=== PATIENT | male | born 1975 | race Caucasian/White ===

== ENCOUNTER 2018-09-12 09:23 | Emergency (ER) | payer OTHER ==
[2018-09-12 09:37] VITALS: BMI 28.7
[2018-09-12 09:40] VITALS: RESP 18; TEMP 98.7
[2018-09-12] MEDS ORDERED: Aspirin 325 mg EC Tablets PO STA (11:38)
--- NOTE | 2018-09-12 12:14 | RAD ---
HISTORY: chest pain COMPARISON: None available. TECHNIQUE: Chest PA and lateral, 2 views FINDINGS: LUNGS: No focal consolidation. Please note that chest x-ray has limited sensitivity for the detection of pulmonary masses. PLEURA: No significant pleural effusion identified. No definite pneumothorax . CARDIOVASCULAR: The cardiomediastinal silhouette appears within normal limits of size. No atherosclerotic calcification present. OSSEOUS STRUCTURES: No acute osseous abnormality identified. VISUALIZED UPPER ABDOMEN: Unremarkable. OTHER FINDINGS: None. IMPRESSION: No acute findings identified.
[2018-09-12 12:17] LABS: BASO % 0.6 % (0.0-2.0); EOS # 0.1 K/uL (0.0-0.7); EOS % 1.5 % (0.0-4.0); HEMOGLOBIN 15.7 g/dL (12.0-18.0); LYMPH # 1.9 K/uL (1.0-4.3); LYMPH % 28.1 % (20.0-40.0); MEAN CELL VOLUME 86.4 fL (80.0-94.0); MEAN CORPUSCULAR HEMOGLOBIN 29.6 pg (27.0-31.0); MEAN CORPUSCULAR HGB CONC 34.3 g/dL (33.0-37.0); MEAN PLATELET VOLUME 8.6 fL (7.2-11.7); MONO # 0.4 K/uL (0.0-0.8); MONO % 6.2 % (0.0-10.0); NEUT # 4.3 K/uL (1.8-7.0); NEUT % 63.6 % (50.0-75.0); NRBC % 0.2 % (0.0-2.0); RBC 5.29 Mil/uL (4.40-5.90); RED CELL DISTRIBUTION WIDTH 13.5 % (11.5-14.5); WHITE BLOOD COUNT 6.7 K/uL (4.8-10.8)
[2018-09-12 12:32] LABS: ALB/GLOB RATIO 1.2 (1.0-2.1); ALBUMIN 4.5 g/dL (3.5-5.0); ALT/SGPT 29 U/L (21-72); AST/SGOT 25 U/L (17-59); BLOOD UREA NITROGEN 11 mg/dL (9-20); CALCIUM 9.8 mg/dl (8.6-10.4); GFR NON-AFRICAN AMERICAN > 60
[2018-09-12 12:41] LABS: B-TYPE NATRIURETIC PEPTIDE 25.1 pg/mL (0-450)
[2018-09-12 12:43] LABS: BARBITURATES, UR NEGATIVE (NEGATIVE); BENZODIAZEPINES, UR NEGATIVE (NEGATIVE); OPIATES, UR NEGATIVE (NEGATIVE); PHENCYCLIDINE, UR NEGATIVE (NEGATIVE)
--- NOTE | 2018-09-12 13:49 | C.PDOC ---
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 Currently, patient denies having abdominal pain,fever,chills, nausea,vomiting, and diarrhea. Time Seen by Provider: 09/12/18 11:16 Chief Complaint (Nursing): Chest Pain History Per: Patient History/Exam Limitations: no limitations Onset/Duration Of Symptoms: Days Current Symptoms Are (Timing): Gone Severity: Moderate Past Medical History Reviewed: Historical Data, Nursing Documentation, Vital Signs Vital Signs: Last Vital Signs Temp 98.7 F 09/12/18 09:37 Pulse 70 09/12/18 09:37 Resp 18 09/12/18 09:37 BP 131/85 09/12/18 09:37 Pulse Ox 100 09/12/18 09:37 Primary Care Provider: FAMILY PROVIDER,NO - Medical History PMH: No Chronic Diseases Surgical History: No Surg Hx Family History: States: No Known Family Hx - Social History Hx Alcohol Use: No Hx Substance Use: No - Immunization History Hx Tetanus Toxoid Vaccination: No Hx Influenza Vaccination: No Hx Pneumococcal Vaccination: No Review Of Systems Except As Marked, All Systems Reviewed And Found Negative. Constitutional: Negative for: Fever, Chills Cardiovascular: Negative for: Chest Pain Respiratory: Negative for: Shortness of Breath Gastrointestinal: Positive for: Abdominal Pain. Negative for: Nausea, Vomiting, Diarrhea Physical Exam - Physical Exam Appears: Non-toxic, No Acute Distress Skin: Normal Color, Warm, Dry Head: Atraumatic, Normacephalic Eye(s): bilateral: Normal Inspection Nose: Normal Oral Mucosa: Moist Neck: Supple Chest: Symmetrical Cardiovascular: Rhythm Regular Respiratory: Normal Breath Sounds, No Rales, No Rhonchi, No Wheezing Gastrointestinal/Abdominal: Normal Exam, Soft, No Tenderness, No Guarding, No Rebound Neurological/Psych: Oriented x3, Normal Speech ED Course And Treatment - Laboratory Results Result Diagrams: 09/12/18 12:10 09/12/18 12:10 Lab Results: Troponin I < 0.0120 ng/mL (0.00-0.120) 09/12/18 12:10 NT-Pro-B Natriuret Pep 25.1 pg/mL (0-450) 09/12/18 12:10 Total Bilirubin 1.2 mg/dL (0.2-1.3) 09/12/18 12:10 AST 25 U/L (17-59) 09/12/18 12:10 ALT 29 U/L (21-72) 09/12/18 12:10 Alkaline Phosphatase 77 U/L (38-126) 09/12/18 12:10 Total Protein 8.2 g/dL (6.3-8.3) 09/12/18 12:10 Albumin 4.5 g/dL (3.5-5.0) 09/12/18 12:10 Globulin 3.6 gm/dL (2.2-3.9) 09/12/18 12:10 Albumin/Globulin Ratio 1.2 (1.0-2.1) 09/12/18 12:10 ECG: Interpreted By Me, Viewed By Me ECG Rhythm: Sinus Rhythm Interpretation Of ECG: NSR with normal intervals and normal axises Rate From EC O2 Sat by Pulse Oximetry: 100 (RA) Pulse Ox Interpretation: Normal - Other Rad CXR X-Ray: Viewed By Me, Read By Radiologist Interpretation: HISTORY: chest pain. COMPARISON: None available. TECHNIQUE: Chest PA and lateral, 2 views. FINDINGS: LUNGS: No focal consolidation. Please note that chest x-ray has limited sensitivity for the detection of pulmonary masses. PLEURA: No significant pleural effusion identified. No definite pneumothorax . CARDIOVASCULAR: The cardiomediastinal silhouette appears within normal limits of size. No atherosclerotic calcification present. OSSEOUS STRUCTURES: No acute osseous abnormality identified. VISUALIZED UPPER ABDOMEN: Unremarkable. OTHER FINDINGS: None. IMPRESSION: No acute findings identified. Medical Decision Making Medical Decision Making: Plan: --Labs --CXR --Aspirin PO Updates On re-evaluation, patient feels better. Patient has been discharged and instructed to follow up in [facility]. Disposition Counseled Patient/Family Regarding: Studies Performed, Diagnosis, Need For Followup - Disposition Referrals: [facility] [Outside] [facility] [Outside] Disposition: HOME/ ROUTINE Disposition Time: 13:51 Condition: STABLE Instructions: Gas and Bloating Forms: Gen Discharge Inst [place], [employer] (Mohawk) Print Language: CHINESE - POA Present On Arrival: None - Clinical Impression Clinical Impression: Abdominal gas pain - Scribe Statement The provider has reviewed the documentation as recorded by the Scribe Tramaine Price Provider Attestation: All medical record entries made by the Scribe were at my direction and personally dictated by me. I have reviewed the chart and agree that the record accurately reflects my personal performance of the history, physical exam, medical decision making, and the department course for this patient. I have also personally directed, reviewed, and agree with the discharge instructions and disposition.
[2018-09-12 14:34] VITALS: BP 138/81; PULSE 68
[2018-09-12 14:35] VITALS: O2SAT 100
--- NOTE | 2018-09-15 16:23 | CARD ---
APPROVED REPORT Date of service: 09/12/2018 EKG Measurement Heart [id number] <Conclusion> Normal sinus rhythm Normal ECG
== END 2018-09-12 14:32 | disposition home or self-care (01) ==
LOC: C.ER 09:23
DX: R14.1 Gas pain (principal)

== ENCOUNTER 2018-09-21 10:01 | Emergency (ER) | payer OTHER ==
[2018-09-21 10:01] VITALS: BMI 28.7
[2018-09-21 10:09] VITALS: RESP 18
--- NOTE | 2018-09-21 10:27 | C.PDOC ---
History Of Present Illness Patient presents to ED with complains of chest pain since yesterday. He describes it as tightness. Additionally he reports yesterday he felt his blood sugar was low, because of fasting and nearly fainted. He injured right wrist and noticed swelling today. He states he was seen in ED last week for same chest pain, had EKG and blood work which was normal but has yet to follow up with clinic. Currently in ED he denies any dizziness, chest pain, SOB, extremity weakness or numbness. Per she states he is frequently worrying and stressed and seems anxious for the past few days. Time Seen by Provider: 09/21/18 10:26 Chief Complaint (Nursing): Chest Pain History Per: Patient History/Exam Limitations: no limitations Onset/Duration Of Symptoms: Days (1) Current Symptoms Are (Timing): Still Present Past Medical History Reviewed: Historical Data, Nursing Documentation, Vital Signs Vital Signs: Last Vital Signs Temp 98.1 F 09/21/18 10:05 Pulse 77 09/21/18 10:05 Resp 18 09/21/18 10:05 BP 139/93 H 09/21/18 10:05 Pulse Ox 100 09/21/18 10:05 Primary Care Provider: Rudi yLnn Surg - Medical History PMH: No Chronic Diseases Surgical History: No Surg Hx Family History: States: No Known Family Hx - Social History Hx Alcohol Use: No Hx Substance Use: No - Immunization History Hx Tetanus Toxoid Vaccination: No Hx Influenza Vaccination: No Hx Pneumococcal Vaccination: No Review Of Systems Constitutional: Negative for: Fever, Chills Cardiovascular: Positive for: Chest Pain Respiratory: Negative for: Shortness of Breath Musculoskeletal: Positive for: Other (right wrist swelling ) Neurological: Negative for: Weakness, Numbness Physical Exam - Physical Exam Appears: Non-toxic, No Acute Distress Skin: Warm, Dry, No Rash Head: Atraumatic, Normacephalic Eye(s): bilateral: Normal Inspection, EOMI Nose: Normal Oral Mucosa: Moist Neck: Supple Chest: Symmetrical, No Tenderness Cardiovascular: Rhythm Regular, No Murmur Respiratory: Normal Breath Sounds, No Rales, No Rhonchi, No Wheezing Extremity: Normal ROM, Tenderness (radial aspect of right wrist ), Capillary Refill (less than 2 sec to right wrist ), No Deformity, Swelling (radial aspect of right wrist ) Extremity: Bilateral: Normal Color And Temperature, Normal ROM Neurological/Psych: Oriented x3, Normal Speech, Normal Motor, Normal Sensation Gait: Steady ED Course And Treatment ECG: Viewed By Me ECG Rhythm: Sinus Rhythm ECG Interpretation: No Acute Changes Interpretation Of ECG: No ST elevations or depressions Rate From EC O2 Sat by Pulse Oximetry: 100 (RA) Medical Decision Making Medical Decision Making: Plan - XR right wrist - CXR - Accucheck Prior records reviewed from last visit. Patient had labwork including troponin done with no acute findings. Patient states he does not want more blood tests, just wanted sugar checked. He has no chest pain currently in the ED and denies any dizziness. CXR and wrist xrays viewed showing no acute cardiopulmonary disease or wrist fracture. He remained well in no distress. Declined any medications Symptoms likely not cardiac and can be anxiety related. Patient advised to follow up outpatient for further eval, testing and treatment Disposition Counseled Patient/Family Regarding: Diagnosis, Need For Followup - Disposition Referrals: [facility] [Outside] [facility] [employer] [facility] [Outside] Disposition: HOME/ ROUTINE Disposition Time: 11:00 Condition: GOOD Additional Instructions: [place] aspirina o Advil para el dolor segn sea necesario Trata de descansar y yancy lquidos. [place] un seguimiento con musa mdico de cabecera o clnica para obtener ms atencin Instructions: Chest Pain That Is Not Caused by the Heart (DC) Forms: [employer] (Frisian) Print Language: SAO TOMEAN - POA Present On Arrival: None - Clinical Impression Clinical Impression: Anxiety, Wrist contusion
--- NOTE | 2018-09-21 11:12 | RAD ---
Date of service: 09/21/2018 HISTORY: Chest pain COMPARISON: 09/12/2018. TECHNIQUE: Chest PA and lateral FINDINGS: LINES AND TUBES: None. LUNG AND PLEURA: The lungs are well inflated and clear. No pleural effusion or pneumothorax. HEART AND MEDIASTINUM: The heart is not enlarged. No aortic atherosclerotic calcifications present. The hilar and mediastinal contours are within normal limits. SKELETAL STRUCTURES: The bony structures are within normal limits for the patient's age. VISUALIZED UPPER ABDOMEN: Normal. OTHER FINDINGS: None. IMPRESSION: No active pulmonary disease.
--- NOTE | 2018-09-21 11:12 | RAD ---
Date of service: 09/21/2018 PROCEDURE: Right Wrist Radiographs. HISTORY: pain s.p fall COMPARISON: None. TECHNIQUE: 4 views obtained. FINDINGS: BONES: Bone alignment and mineralization are normal. There is no acute displaced fracture or bone destruction. JOINTS: Normal. No dislocation. SOFT TISSUES: Normal. OTHER FINDINGS: None. IMPRESSION: No acute displaced fracture or dislocation.
[2018-09-21 12:05] VITALS: BP 120/83; PULSE 65; TEMP 97.9
[2018-09-21 13:04] VITALS: O2SAT 100
== END 2018-09-21 12:07 | disposition home or self-care (01) ==
LOC: C.ER 10:01
DX: S60.211A Contusion of right wrist, initial encounter (principal); X58.XXXA Exposure to other specified factors, initial encounter; F41.9 Anxiety disorder, unspecified